=== PATIENT | male | born 1990 | race Caucasian/White ===

== ENCOUNTER 2023-07-13 15:59 | Outpatient (CLI) | payer OTHER ==
--- NOTE | 2023-07-13 18:56 | XRAY Report ---
PROCEDURE: Wrist 3 View RT INDICATIONS: RIGHT WRIST PX TECHNIQUE: 3 views of the wrist were acquired. COMPARISON: None. FINDINGS: Bones: No fractures or dislocations. No suspicious bony lesions. Soft tissues: No suspicious soft tissue calcifications or masses. IMPRESSION: No acute bony abnormality. Reviewed by: Otis Aguilar on 07/13/2023 6:55 PM [facility] Approved by: Otis Aguilar on 07/13/2023 6:55 PM [facility] Station ID: [id number]
== END 2023-07-13 16:00 | disposition home or self-care (01) ==
LOC: DI 15:59
PROVIDERS: ATTEND Student in an Organized Health Care Education/Training Program
DX: M25.531 Pain in right wrist (principal)